=== PATIENT | male | born 1965 | race American Indian/Alaskan Native ===

== ENCOUNTER 2021-07-26 15:30 | Emergency (ER) | payer OTHER ==
--- NOTE | 2021-07-26 16:32 | XRay Report ---
CHEST 2 VIEWS INDICATION / CLINICAL INFORMATION: cough, chest tightness, COVID +. COMPARISON: None available. FINDINGS: SUPPORT DEVICES: None. HEART / MEDIASTINUM: No significant abnormality. LUNGS / PLEURA: No significant pulmonary or pleural abnormality. No pneumothorax. ADDITIONAL FINDINGS: No significant additional findings. IMPRESSION: 1. No acute findings. Signer Name: Boubacar Hays MD Signed: 07/26/2021 4:28 PM Workstation Name: [id number]
--- NOTE | 2021-07-26 17:00 | Emergency Department Report ---
ED General Adult HPI - General Chief complaint: Chest Pain Stated complaint: fever Time Seen by Provider: 07/26/21 15:56 Source: patient Mode of arrival: Ambulatory Limitations: No Limitations - History of Present Illness Initial comments: Patient is a 55-year-old male presents emergency room complaints of a cough that began 3 days ago. He reports that yesterday he took at home COVID-19 test and reports that it was positive. He has associated chest tightness, fever, diarrhea, body aches, chills. He denies any shortness of breath, pleuritic pain, leg swelling, calf pain, nausea, vomiting. Has medical history of diabetes and hypertension. No allergies to medications. He states he has been vaccinated for COVID-19. Severity scale (0 -10): 6 - Related Data Previous Rx's Medication Instructions Recorded Last Taken Type Benzonatate [Tessalon Perles] 100 mg PO Q8HR PRN #12 capsule 07/26/21 Unknown Rx guaiFENesin ER [Mucinex ER] 600 mg PO Q12H #14 tablet.er 07/26/21 Unknown Rx Allergies Allergy/AdvReac Type Severity Reaction Status Date / Time No Known Allergies Allergy Unverified 07/26/21 15:48 ED Review of Systems ROS: Stated complaint: fever Other details as noted in HPI Comment: All other systems reviewed and negative ED Past Medical Hx - Past Medical History Previous Medical History?: Yes Hx Hypertension: Yes - Surgical History Additional Surgical History: KNEE SURGERY - Medications Home Medications: Home Medications Medication Instructions Recorded Confirmed Last Taken Type Benzonatate [Tessalon Perles] 100 mg PO Q8HR PRN #12 capsule 07/26/21 Unknown Rx guaiFENesin ER [Mucinex ER] 600 mg PO Q12H #14 tablet.er 07/26/21 Unknown Rx ED Physical Exam - General Limitations: No Limitations General appearance: alert, in no apparent distress - Head Head exam: Present: atraumatic, normocephalic - Eye Eye exam: Present: normal appearance - ENT ENT exam: Present: mucous membranes moist - Respiratory Respiratory exam: Present: normal lung sounds bilaterally. Absent: respiratory distress, wheezes, rales, rhonchi, stridor, chest wall tenderness, accessory muscle use, decreased breath sounds, prolonged expiratory - Cardiovascular Cardiovascular Exam: Present: regular rate, normal rhythm, normal heart sounds. Absent: systolic murmur, diastolic murmur, rubs, gallop - Neurological Exam Neurological exam: Present: alert, oriented X3 - Psychiatric Psychiatric exam: Present: normal affect, normal mood - Skin Skin exam: Present: warm, dry, intact ED Course Vital Signs 07/26/21 07/26/21 15:53 18:04 Temperature 97.5 F L 98.1 F Pulse Rate 104 H 103 H Respiratory 20 20 Rate Blood Pressure 161/94 133/92 [Right] O2 Sat by Pulse 95 97 Oximetry ED Medical Decision Making - Lab Data Result diagrams: 07/26/21 16:35 07/26/21 16:35 Lab Results 07/26/21 07/26/21 Range/Units 16:35 16:35 WBC 5.1 (4.5-11.0) K/mm3 RBC 6.10 H (3.65-5.03) M/mm3 Hgb 12.9 (11.8-15.2) gm/dl Hct 42.4 (35.5-45.6) % MCV 70 L (84-94) fl MCH 21 L (28-32) pg MCHC 31 L (32-34) % RDW 16.7 H (13.2-15.2) % Plt Count 172 (140-440) K/mm3 Lymph % (Auto) 24.3 (13.4-35.0) % [place] % (Auto) 12.1 H (0.0-7.3) % Eos % (Auto) 3.5 (0.0-4.3) % Baso % (Auto) 0.5 (0.0-1.8) % Lymph # (Auto) 1.3 (1.2-5.4) K/mm3 [place] # (Auto) 0.6 (0.0-0.8) K/mm3 Eos # (Auto) 0.2 (0.0-0.4) K/mm3 Baso # (Auto) 0.0 (0.0-0.1) K/mm3 Seg Neutrophils % 59.6 (40.0-70.0) % Seg Neutrophils # 3.1 (1.8-7.7) K/mm3 Sodium 139 (137-145) mmol/L Potassium 4.3 (3.6-5.0) mmol/L Chloride 103.8 (98-107) mmol/L Carbon Dioxide 24 (22-30) mmol/L Anion Gap 16 mmol/L BUN 14 (9-20) mg/dL Creatinine 1.5 H (0.8-1.3) mg/dL Estimated GFR 59 ml/min BUN/Creatinine Ratio 9 % Glucose 140 H (75-100) mg/dL Calcium 8.3 L (8.4-10.2) mg/dL Total Bilirubin 0.30 (0.1-1.2) mg/dL AST 21 (5-40) units/L ALT 20 (7-56) units/L Alkaline Phosphatase 58 (35-129) units/L Troponin T < 0.010 (0.00-0.029) ng/mL Total Protein 6.8 (6.3-8.2) g/dL Albumin 3.6 L (3.9-5) g/dL Albumin/Globulin Ratio 1.1 % Vital Signs 07/26/21 07/26/21 15:53 18:04 Temperature 97.5 F L 98.1 F Pulse Rate 104 H 103 H Respiratory 20 20 Rate Blood Pressure 161/94 133/92 [Right] O2 Sat by Pulse 95 97 Oximetry - EKG Data EKG shows normal: sinus rhythm, axis, intervals, QRS complexes, ST-T waves Rate: normal - Radiology Data Radiology results: report reviewed Ordering Physician: WES SALAS Date of Service: 07/26/21 Procedure(s): XR chest routine 2V Accession Number(s): [id number] cc: WES SALAS Fluoro Time In Minutes: CHEST 2 VIEWS INDICATION / CLINICAL INFORMATION: cough, chest tightness, COVID +. COMPARISON: None available. FINDINGS: SUPPORT DEVICES: None. HEART / MEDIASTINUM: No significant abnormality. LUNGS / PLEURA: No significant pulmonary or pleural abnormality. No pneumothorax. ADDITIONAL FINDINGS: No significant additional findings. IMPRESSION: 1. No acute findings. Signer Name: Boubacar Hays MD Signed: 07/26/2021 4:28 PM Workstation Name: [id number] Transcribed By: TL Dictated By: Boubacar Hays MD Electronically Authenticated By: Boubacar Hays MD Signed Date/Time: 07/26/211627 DD/ 26 TD/TT: - Medical Decision Making Patient is a 55-year-old male presents emergency room complaints of a cough that began 3 days ago. He reports that yesterday he took at home COVID-19 test and reports that it was positive. He has associated chest tightness, fever, diarrhea, body aches, chills. He denies any shortness of breath, pleuritic garth n, leg swelling, calf pain, nausea, vomiting. Has medical history of diabetes and hypertension. No allergies to medications. He states he has been vaccinated for COVID-19. Vitals are stable. Breath sounds are clear bilaterally. EKG is within normal limits. Labs are stable. Troponin is negati ve. Chest x-ray with no acute process no signs of pneumonia. Discussed supportive care and symptomatic treatment with patient. Discussed the importance of oral hydration. Discussed return precautions and the importance of primary care follow-up. Patient does not meet criteria for COVID-19 admis curry, no infiltrates on x-ray, no hypoxia, no shortness of breath, no increased work of breathing. Advised patient please take medication as prescribed. Increase your fluid intake. Follow-up with a primary care doctor for reexamination. Return to emergency room for any new or worsening symptoms. Recommend outpatient COVID-19 PCR testing and to self quarantine for 10 days from onset of symptoms. Critical care attestation.: If time is entered above; I have spent that time in minutes in the direct care of this critically ill patient, excluding procedure time. ED Disposition Clinical Impression: COVID-19, Chest tightness, Cough Disposition: 01 HOME / SELF CARE / HOMELESS Is pt being admited?: No Does the pt Need Aspirin: No Condition: Stable Instructions: COVID-19 Additional Instructions: please take medication as prescribed. Increase your fluid intake. Follow-up with a primary care doctor for reexamination. Return to emergency room for any new or worsening symptoms. Recommend outpatient COVID-19 PCR testing and to self quarantine for 10 days from onset of symptoms. Prescriptions: guaiFENesin ER [Mucinex ER] 600 mg PO Q12H #14 tablet.er Benzonatate [Tessalon Perles] 100 mg PO Q8HR PRN #12 capsule PRN Reason: cough Referrals: PRIMARY CARE, [Primary Care Provider] - 3-5 Days Forms: Work/School Release Form(ED) Time of Disposition: 17:44 Print Language: PASHTO
[2021-07-26 17:16] LABS: Alanine Aminotransferase 20 units/L (7-56); Albumin 3.6 g/dL (3.9-5); BUN/Creatinine Ratio 9; Blood Urea Nitrogen 14 mg/dL (9-20); Calcium 8.3 mg/dL (8.4-10.2); Hemolysis Index 13
[2021-07-26 17:21] LABS: Basophils % (Auto) 0.5 % (0.0-1.8); Eosinophils # (Auto) 0.2 K/mm3 (0.0-0.4); Eosinophils % (Auto) 3.5 % (0.0-4.3); Lymphocytes # (Auto) 1.3 K/mm3 (1.2-5.4); Lymphocytes % (Auto) 24.3 % (13.4-35.0); Mean Corpuscular HGB Conc 31 % (32-34); Monocytes # (Auto) 0.6 K/mm3 (0.0-0.8); Monocytes % (Auto) 12.1 % (0.0-7.3); Platelet Count 172 K/mm3 (140-440); Red Cell Distribution Width 16.7 % (13.2-15.2)
[2021-07-26 17:24] LABS: Hematocrit 42.4 % (35.5-45.6); Hemoglobin 12.9 gm/dl (11.8-15.2); Mean Corpuscular Volume 70 fl (84-94)
[2021-07-26 18:05] VITALS: BP 133/92
--- NOTE | 2021-07-28 10:48 | Electrocardiograph Report ---
[facility] Test Date: 2021-07-26 Test Time: 17:06:19 Pat Name: JAY ADAMS Department: Room: Gender: M Machine Design Engineer: ALBERTO : [id number] Requested By: MARY MENDEZ Order Number: [id number] Reading MD: Kadeem De La O Measurements Intervals [place] Rate: 99 P: 67 [place]: 142 QRS: 43 QRSD: 96 T: 9 QT: 361 QTc: 463 Interpretive Statements Sinus rhythm No previous ECG available for comparison Electronically Signed On 07-28-2021 10:47:27 EST by Kadeem De La O
== END 2021-07-26 18:04 | disposition home or self-care (01) ==
LOC: ED 15:30
DX: U07.1 COVID-19 (principal); I10 Essential (primary) hypertension; R07.89 Other chest pain; R05.9 Cough, unspecified
CPT/HCPCS: 36415; 71046; 80053; 84484; 85025; 93005; 99283